=== PATIENT | female | born 1940 | race Caucasian/White ===

== ENCOUNTER 2017-09-28 13:00 | Inpatient (IN) | payer MEDICARE ==
[~2017-09-28] VITALS: Ht 157.5 cm; Wt 63.1 kg
[2017-09-28 13:56] VITALS: BP 96/41
[2017-09-28 14:03] LABS: BASOPHILS % (AUTO) 0.5 % (0.0-5.0); EOSINOPHILS % (AUTO) 2.2 % (0.0-8.0); HEMATOCRIT 33.7 % (36-48); LYMPHOCYTES % (AUTO) 19.2 % (21.0-51.0); MEAN CORPUSCULAR HEMOGLOBIN 33.5 pg (27.0-33.0); MEAN CORPUSCULAR HGB CONC 34.3 g/dL (32.0-36.0); MEAN CORPUSCULAR VOLUME 97.6 fL (79-99); MONOCYTES % (AUTO) 10.1 % (3.0-13.0); PLATELET COUNT (AUTO) 121 K/uL (130-400); RED BLOOD CELL COUNT(AUTO) 3.46 MIL/uL (4.00-5.50); RED CELL DISTRIBUTION WIDTH 14.7 % (11.0-15.5); WHITE BLOOD COUNT (AUTO) 9.1 K/uL (4.8-10.8)
[2017-09-28 14:05] LABS: APPEARANCE,URINE Clear (CLEAR); BILIRUBIN,URINE Small (NEGATIVE); COLOR,URINE Dark Yellow (YELLOW); GLUCOSE, URINE (UA) Negative (NEGATIVE); KETONES,URINE Trace mg/dL (NEGATIVE); LEUKOCYTE ESTERASE ,URINE Trace (NEGATIVE); NITRATE,URINE Negative (NEGATIVE); OCCULT BLOOD,URINE Negative (NEGATIVE); PROTEIN,URINE Trace (NEGATIVE)
[2017-09-28 14:12] LABS: BACTERIA,URINE Rare /HPF (None Seen); RBC,URINE 0-1 /HPF (0-1); SQUAMOUS EPITHELIAL CELL,UR Rare /LPF (0-2); WBC,URINE 0-1 /HPF (0-1)
[2017-09-28 14:12] LABS: CREATININE 0.9 mg/dL (0.5-1.5); POTASSIUM 4.2 mmol/L (3.5-5.1)
[2017-09-28 14:16] LABS: INR 1.06 (0.85-1.15); PARTIAL THROMBOPLASTIN TIME 25.4 SEC (26.3-35.5); PROTHROMBIN TIME 11.1 SEC (9.6-11.6)
[2017-09-28] MEDS ORDERED: ASPI-1197 PO (14:31)
[2017-09-28] MEDS ORDERED: metoprolol PO (14:31)
[2017-09-28] MEDS ORDERED: STOOL SOFTNER PO (14:31)
[2017-09-28] MEDS ORDERED: MYCOPHENOLATE PO (14:31)
[2017-09-28] MEDS ORDERED: ALBUTEROL SULFATE IH (14:31)
[2017-09-28] MEDS ORDERED: DUO NEB NEB (14:31)
[2017-09-28] MEDS ORDERED: SITA50TA PO (14:31)
[2017-09-28] MEDS ORDERED: GABA-531 PO (14:31)
[2017-09-28] MEDS ORDERED: HYDR200T4 PO (14:31)
[2017-09-28] MEDS ORDERED: MULTIVITAMIN PO (14:31)
[2017-09-28] MEDS ORDERED: FAMO20TA8 PO (14:31)
[2017-09-28] MEDS ORDERED: TRAZ-144 PO (14:31)
[2017-09-28] MEDS ORDERED: METF500T6 PO (14:31)
[2017-09-28] MEDS ORDERED: FLUTICASONE NASAL (14:31)
[2017-09-28] MEDS ORDERED: PRED20TA3 PO (14:31)
[2017-09-28] MEDS ORDERED: CLOP75TA32 PO (14:31)
[2017-09-28] MEDS ORDERED: AMLO5TAB2 PO (14:31)
[2017-09-28] MEDS ORDERED: krill oil PO (14:31)
[2017-09-28] MEDS ORDERED: ESOM20CA31 PO (14:31)
[2017-09-28] MEDS ORDERED: ATOR40TA71 PO (14:31)
[2017-09-30] VITALS (16 sets, daily range): BP systolic 82–122; BP diastolic 29–57
[2017-09-30] MEDS ORDERED: SODIUM CHLORIDE 0.9% 500ML 500 ML IV SCH (05:00)
[2017-09-30] MEDS ORDERED: SODIUM CHLORIDE 0.9% 1000ML 1,000 ML IV ONE (09:09)
[2017-09-30] MEDS ORDERED: NEOMY SULF/POLYMYXIN B SULFATE 1 ML AMPUL IR ONE (10:21)
[2017-09-30] MEDS ORDERED: THROMBIN-JMI 5000 UNIT/VIAL TP ONE (10:21)
[2017-09-30] MEDS ORDERED: HEPARIN SODIUM 1000UNIT/ML 10ML VIAL ONE (10:31)
[2017-09-30] MEDS ORDERED: ISOVUE-300 100 ML VIAL IV ONE (10:31)
[2017-09-30] MEDS ORDERED: GLYCOPYRROLATE 0.2 MG/ML 5 ML VIAL ONE (10:35)
[2017-09-30] MEDS ORDERED: ONDANSETRON HCL 4 MG/2 ML VIAL ONE (10:35)
[2017-09-30] MEDS ORDERED: MIDAZOLAM HCL 1 MG/ML 2ML VIAL ONE (10:35)
[2017-09-30] MEDS ORDERED: DEXAMETHASONE SOD PHOSPHATE 10MG/ML 1ML VIAL ONE (10:35)
[2017-09-30] MEDS ORDERED: FENTANYL CITRATE PF 50 MCG/1 ML 2ML VIAL ONE (10:35)
[2017-09-30] MEDS ORDERED: LIDOCAINE PF 2% 5ML ABBOJECT ONE (10:35)
[2017-09-30] MEDS ORDERED: SUCCINYLCHOLINE 200MG/10ML SYR ONE (10:35)
[2017-09-30] MEDS ORDERED: PROPOFOL 10 MG/ML 20ML VIAL IV ONE (10:35)
[2017-09-30] MEDS ORDERED: CEFAZOLIN 1GM / D5W 50ML 100 ML ONE (10:59)
[2017-09-30] MEDS ORDERED: PROTAMINE SULFATE 10 MG/ML 25ML VIAL IV ONE (12:41)
[2017-09-30] MEDS ORDERED: DEXTROSE 50%-WATER 50 ML DISP.SYRIN IV PRN (13:15)
[2017-09-30] MEDS ORDERED: NEOSTIGMINE METHYLSULFATE 1MG/ML IV ONE (13:39)
[2017-09-30] MEDS: SODIUM CHLORIDE 0.9% 1000ML 1,000 ML IV SCH ×2 (14:00→23:07)
[2017-09-30] MEDS: INSULIN HUMULIN R 100 UNIT/ML 3ML SQ SCH ×2 (16:18→20:58)
[2017-09-30] MEDS: GABAPENTIN 300 MG CAPSULE PO SCH (20:56)
[2017-09-30] MEDS: ATORVASTATIN CALCIUM 40 MG TABLET PO SCH (20:56)
[2017-09-30] MEDS: FAMOTIDINE 20MG TAB 20 MG TAB PO SCH (20:56)
[2017-09-30] MEDS: TRAZODONE HCL 50 MG TAB PO SCH (20:56)
[2017-09-30] MEDS: METOPROLOL TARTRATE 50 MG TAB PO SCH (20:57)
[2017-09-30] MEDS: MYCOPHENOLATE MOFETIL 250 MG CAPSULE PO SCH (20:57)
[2017-10-01] VITALS (10 sets, daily range): BP systolic 83–131; BP diastolic 37–76
[2017-10-01] MEDS ORDERED: CEFAZOLIN SODIUM 1 GM VIAL IVP ONE (01:00)
[2017-10-01 03:57] LABS: HEMATOCRIT 27.2 % (36-48); MEAN CORPUSCULAR HEMOGLOBIN 32.1 pg (27.0-33.0); MEAN CORPUSCULAR HGB CONC 32.7 g/dL (32.0-36.0); PLATELET COUNT (AUTO) 71 K/uL (130-400); RED BLOOD CELL COUNT(AUTO) 2.77 MIL/uL (4.00-5.50); WHITE BLOOD COUNT (AUTO) 6.6 K/uL (4.8-10.8)
[2017-10-01 04:17] LABS: ALBUMIN 2.6 g/dL (3.5-5.0); BILIRUBIN,TOTAL 0.2 mg/dL (0.2-1.0); CREATININE 0.9 mg/dL (0.5-1.5); POTASSIUM 4.8 mmol/L (3.5-5.1); TOTAL PROTEIN, SERUM 5.1 g/dL (6.0-8.3)
[2017-10-01] MEDS: INSULIN HUMULIN R 100 UNIT/ML 3ML SQ SCH ×4 (05:55→21:00)
[2017-10-01] MEDS: PANTOPRAZOLE SODIUM 40 MG TABLET.DR PO SCH (08:44)
[2017-10-01] MEDS: AMLODIPINE BESYLATE 5 MG TAB PO SCH (08:45)
[2017-10-01] MEDS: MYCOPHENOLATE MOFETIL 250 MG CAPSULE PO SCH ×2 (08:45→21:50)
[2017-10-01] MEDS: PREDNISONE 20 MG TABLET PO SCH (08:46)
[2017-10-01] MEDS: CLOPIDOGREL BISULFATE 75 MG TAB PO SCH (08:46)
[2017-10-01] MEDS: METOPROLOL TARTRATE 50 MG TAB PO SCH ×2 (08:47→21:00)
[2017-10-01] MEDS: ASPIRIN 81MG TAB.CHEW PO SCH (08:47)
[2017-10-01] MEDS: HYDROXYCHLOROQUINE SULFATE 200 MG TAB PO SCH (08:51)
[2017-10-01] MEDS: FLUTICASONE PROPIONATE 50MCG/SPRAY 16 GM BOTTLE NS SCH (08:51)
[2017-10-01] MEDS ORDERED: KRILL OIL PO SCH (21:00)
[2017-10-01] MEDS ORDERED: STOOL SOFTNER PO SCH (21:00)
[2017-10-01] MEDS: ATORVASTATIN CALCIUM 40 MG TABLET PO SCH (21:49)
[2017-10-01] MEDS: TRAZODONE HCL 50 MG TAB PO SCH (21:50)
[2017-10-01] MEDS: GABAPENTIN 300 MG CAPSULE PO SCH (21:50)
[2017-10-01] MEDS: FAMOTIDINE 20MG TAB 20 MG TAB PO SCH (21:50)
[2017-10-02 03:32] LABS: BASOPHILS % (AUTO) 0.2 % (0.0-5.0); EOSINOPHILS % (AUTO) 0.3 % (0.0-8.0); HEMATOCRIT 25.5 % (36-48); LYMPHOCYTES % (AUTO) 16.8 % (21.0-51.0); MEAN CORPUSCULAR HEMOGLOBIN 33.6 pg (27.0-33.0); MEAN CORPUSCULAR HGB CONC 34.6 g/dL (32.0-36.0); MEAN CORPUSCULAR VOLUME 97.1 fL (79-99); MONOCYTES % (AUTO) 9.9 % (3.0-13.0); NEUTROPHILS % (AUTO) 72.8 % (40.0-77.0); PLATELET COUNT (AUTO) 66 K/uL (130-400); RED BLOOD CELL COUNT(AUTO) 2.63 MIL/uL (4.00-5.50); RED CELL DISTRIBUTION WIDTH 14.8 % (11.0-15.5); WHITE BLOOD COUNT (AUTO) 6.8 K/uL (4.8-10.8)
[2017-10-02 03:38] VITALS: BP 133/53
[2017-10-02 04:00] LABS: POTASSIUM 4.8 mmol/L (3.5-5.1)
[2017-10-02 04:39] LABS: PLATELET MORPHOLOGY COMMENT SLIGHTLY DECREASED
[2017-10-02] MEDS: INSULIN HUMULIN R 100 UNIT/ML 3ML SQ SCH ×2 (06:40→11:24)
[2017-10-02 07:58] VITALS: BP 148/58
[2017-10-02] MEDS: METOPROLOL TARTRATE 50 MG TAB PO SCH (08:59)
[2017-10-02] MEDS: PANTOPRAZOLE SODIUM 40 MG TABLET.DR PO SCH (08:59)
[2017-10-02] MEDS: CLOPIDOGREL BISULFATE 75 MG TAB PO SCH (08:59)
[2017-10-02] MEDS: AMLODIPINE BESYLATE 5 MG TAB PO SCH (08:59)
[2017-10-02] MEDS: ASPIRIN 81MG TAB.CHEW PO SCH (09:00)
[2017-10-02] MEDS: PREDNISONE 20 MG TABLET PO SCH (09:00)
[2017-10-02] MEDS: FLUTICASONE PROPIONATE 50MCG/SPRAY 16 GM BOTTLE NS SCH (09:00)
[2017-10-02] MEDS: MYCOPHENOLATE MOFETIL 250 MG CAPSULE PO SCH (09:00)
[2017-10-02] MEDS: HYDROXYCHLOROQUINE SULFATE 200 MG TAB PO SCH (09:02)
[2017-10-02 11:00] VITALS: BP 126/50
== END 2017-10-02 14:45 | disposition home or self-care (01) | DRG 38 ==
LOC: EDSTATUS 13:00 → OBSVTOIN 09-30 05:56 → INTOOBSV 09-30 05:56 → DAHIP 09-30 05:56 → 2BH 09-30 12:33 → 2DH 10-02 12:03
PROVIDERS: ADMIT Internal Medicine; ATTEND Internal Medicine
PROC: 037 Upper Arteries, Dilation (ICD-10-PCS; 2017-09-30)
PROC: 03Q Upper Arteries, Repair (ICD-10-PCS; principal; 2017-09-30 09:30)
DX: I65.23 Occlusion and stenosis of bilateral carotid arteries (principal); E44.1 Mild protein-calorie malnutrition; J84.10 Pulmonary fibrosis, unspecified; E11.9 Type 2 diabetes mellitus without complications; M35.00 Sjogren syndrome, unspecified; L93.0 Discoid lupus erythematosus; E78.5 Hyperlipidemia, unspecified; I34.0 Nonrheumatic mitral (valve) insufficiency; I45.10 Unspecified right bundle-branch block; I25.10 Atherosclerotic heart disease of native coronary artery without angina pectoris; K21.9 Gastro-esophageal reflux disease without esophagitis; M54.12 Radiculopathy, cervical region; Z90.710 Acquired absence of both cervix and uterus; Z91.19 Patient's noncompliance with other medical treatment and regimen; Z95.5 Presence of coronary angioplasty implant and graft; Z88.8 Allergy status to other drugs, medicaments and biological substances; Z68.25 Body mass index [BMI] 25.0-25.9, adult
CPT/HCPCS: 36415; 37215; 71045; 80048; 80053; 81001; 82948; 85025; 85027; 85347; 85610; 85730; 93005; C1725; C1769; J0330; J0690; J1100; J1644; J2001; J2250; J2405; J2704; J2710; J2720; J3010; J3490; J7030; J7517; Q9967